=== PATIENT | female | born 1965 | race Caucasian/White ===

== ENCOUNTER 2017-08-10 05:19 | Inpatient (IN) | payer OTHER ==
[~2017-08-10] VITALS: Ht 177.8 cm; Wt 82.7 kg
[~2017-08-10 05:19] MED LIST: B12; DULO60CA7 PO; ESTROGEN PO; LEVO75TA PO; MVT TP; OMEP-110 PO; TRAM50TA2 PO; ZOLP-413 PO
[2017-08-10] MEDS ORDERED: LACTATED RINGERS 1,000 ML IV SCH (06:08)
[2017-08-10] MEDS ORDERED: BUPIVACAINE/PF 0.5% ONE (06:16)
[2017-08-10] MEDS ORDERED: EPINEPHRINE 1 MG/ML, 1ML ONE (06:17)
[2017-08-10] MEDS ORDERED: THROMBIN 5,000 UNIT VIAL TP ONE (06:17)
[2017-08-10] MEDS ORDERED: BACITRACIN 50,000 UNIT ONE (06:17)
[2017-08-10] MEDS ORDERED: BACITRACIN OINT 500U/GM, 15 GM ONE (06:17)
[2017-08-10] MEDS ORDERED: ESTR1TAB15 PO (06:35)
[2017-08-10] MEDS ORDERED: ALPR0.5T6 PO (06:35)
[2017-08-10 06:36] VITALS: BP 127/85
[2017-08-10] MEDS ORDERED: DEXAMETHASONE 4 MG/ML, 5ML ONE (07:14)
[2017-08-10] MEDS ORDERED: REMIFENTANIL 2 MG ONE (07:14)
[2017-08-10] MEDS ORDERED: ONDANSETRON 2MG/ML, 2ML ONE ×2 (07:14→09:26)
[2017-08-10] MEDS ORDERED: EPHEDRINE 50 MG/ML, 1ML ONE (07:14)
[2017-08-10] MEDS ORDERED: PROPOFOL 10 MG/ML, 20ML ONE (07:14)
[2017-08-10] MEDS ORDERED: CEFAZOLIN 1,000 MG ONE (07:14)
[2017-08-10] MEDS ORDERED: MIDAZOLAM 1 MG/ML, 2ML ONE ×2 (07:15→09:53)
[2017-08-10] MEDS ORDERED: FENTANYL PF 100 MCG/2ML ONE ×2 (07:16→09:06)
[2017-08-10] MEDS ORDERED: ONDANSETRON 2MG/ML, 2ML IVPush PRN ×2 (08:30→09:00)
[2017-08-10] MEDS ORDERED: LABETALOL 5MG/ML, 20ML IV PRN (08:30)
[2017-08-10] MEDS ORDERED: EPHEDRINE 50 MG/ML, 1ML IVPush PRN (08:30)
[2017-08-10] MEDS ORDERED: MEPERIDINE/PF 25MG/0.5ML IVPush PRN (08:30)
[2017-08-10] MEDS ORDERED: METOCLOPRAMIDE 5 MG/ML, 2ML IV PRN (08:30)
[2017-08-10] MEDS ORDERED: hydrALAzine 20 MG/ML, 1ML IV PRN (08:30)
[2017-08-10] MEDS ORDERED: MIDAZOLAM 1 MG/ML, 2ML IV PRN (08:30)
[2017-08-10] MEDS ORDERED: ALBUTEROL SULFATE 2.5 MG/3 ML NPPB PRN (08:30)
[2017-08-10] MEDS ORDERED: OXYcodone 5 MG/5 ML ORAL.SOL UDC PO PRN (08:30)
[2017-08-10] MEDS ORDERED: PHARMACY MAY ADJ FOR RENAL FX MC PRN (09:00)
[2017-08-10] MEDS ORDERED: HYDROcodone/APAP 10/325 MG TABLET PO PRN (09:00)
[2017-08-10] MEDS ORDERED: PROMETHAZINE 25 MG/ML, 1ML IM PRN (09:00)
[2017-08-10] MEDS ORDERED: morphine SULFATE 10 MG/ML, 1ML IVPush PRN (09:00)
[2017-08-10] MEDS: DULOXETINE 30 MG CAPSULE.DR PO SCH (09:00)
[2017-08-10] MEDS: SODIUM CHLORIDE FLUSH 10ML SYR IVF SCH ×2 (09:00→19:43)
[2017-08-10] MEDS ORDERED: HYDROcodone/APAP 5/325 TABLET PO PRN (09:00)
[2017-08-10] MEDS ORDERED: SENNA/DOCUSATE TABLET PO PRN (09:00)
[2017-08-10] MEDS ORDERED: DIPHENHYDRAMINE 50 MG/ML, 1ML IVPush PRN (09:00)
[2017-08-10] MEDS ORDERED: BISACODYL 10 MG SUPP PR PRN (09:00)
[2017-08-10] MEDS ORDERED: OXYcodone 5 MG/5 ML ORAL.SOL UDC ONE (09:06)
[2017-08-10] MEDS: FENTANYL PF 100 MCG/2ML IV PRN ×2 (09:08→09:20)
[2017-08-10] MEDS ORDERED: METHOCARBAMOL 750 MG TABLET ONE (09:25)
[2017-08-10] MEDS ORDERED: HYDROmorphone 2 MG/ML, 1ML ONE (09:30)
[2017-08-10] MEDS: HYDROmorphone 1 MG/ML, 1ML IV PRN ×4 (09:32→10:03)
[2017-08-10] MEDS: METHOCARBAMOL 750 MG TABLET PO PRN ×2 (09:40→17:47)
[2017-08-10] MEDS ORDERED: LABETALOL 5MG/ML, 20ML ONE (09:55)
[2017-08-10 11:00] VITALS: BP 149/90
[2017-08-10] MEDS: TRAMADOL MC SCH ×2 (12:00→19:33)
[2017-08-10] MEDS: D5%-0.9% NACL+KCL 20MEQ 1,000 ML IV SCH (12:31)
[2017-08-10] MEDS: OMEPRAZOLE 20 MG CAPSULE.DR PO SCH (12:31)
[2017-08-10] MEDS: ESTRADIOL 1 MG TABLET PO SCH (12:31)
[2017-08-10 13:29] VITALS: BP 136/83
[2017-08-10] MEDS: OXYcodone/APAP 5/325MG TABLET PO PRN ×3 (13:55→21:53)
[2017-08-10] MEDS: CEFAZOLIN PMX 1GM/50ML 50 ML IVPB SCH ×2 (16:06→23:13)
[2017-08-10 18:22] VITALS: BP 137/79
[2017-08-10 23:09] VITALS: BP 117/74
[2017-08-11] MEDS: D5%-0.9% NACL+KCL 20MEQ 1,000 ML IV SCH (00:48)
[2017-08-11] MEDS: TRAMADOL MC SCH (00:56)
[2017-08-11] MEDS: METHOCARBAMOL 750 MG TABLET PO PRN ×2 (01:59→10:49)
[2017-08-11] MEDS: OXYcodone/APAP 5/325MG TABLET PO PRN ×3 (02:00→10:49)
[2017-08-11 02:16] VITALS: BP 115/76
[2017-08-11] MEDS ORDERED: LEVOTHYROXINE 75 MCG TABLET PO SCH (06:00)
[2017-08-11 06:30] VITALS: BP 110/69
[2017-08-11] MEDS ORDERED: OMEPRAZOLE 20 MG CAPSULE.DR PO SCH (07:30)
[2017-08-11 07:35] VITALS: BP 110/69
[2017-08-11] MEDS: DULOXETINE 30 MG CAPSULE.DR PO SCH (07:51)
[2017-08-11] MEDS: SODIUM CHLORIDE FLUSH 10ML SYR IVF SCH (07:51)
[2017-08-11] MEDS: OMEPRAZOLE 20 MG CAPSULE.DR PO SCH (07:51)
[2017-08-11] MEDS: ESTRADIOL 1 MG TABLET PO SCH (07:51)
[2017-08-11] MEDS ORDERED: ZOLPIDEM 5MG TABLET PO PRN (10:30)
[2017-08-11] MEDS ORDERED: OXYC-302 PO (11:06)
[2017-08-11] MEDS ORDERED: METH750T87 PO (11:06)
[2017-08-11] MEDS ORDERED: CEPH-368 PO (11:07)
[2017-08-11] MEDS ORDERED: FLUC150T PO (11:12)
== END 2017-08-11 11:30 | disposition home or self-care (01) | DRG 473 ==
LOC: ORIP 05:19 → 4NOR 11:16 → DCLOUNGE 08-11 11:05
PROVIDERS: ADMIT Neurological Surgery; ATTEND Neurological Surgery
PROC: 0RB30ZZ Excision of Cervical Vertebral Disc, Open Approach (ICD-10-PCS; 2017-08-10)
PROC: 4A11X4G Monitoring of Peripheral Nervous Electrical Activity, Intraoperative, External Approach (ICD-10-PCS; 2017-08-10)
PROC: 0RG20A0 Fusion of 2 or more Cervical Vertebral Joints with Interbody Fusion Device, Anterior Approach, Anterior Column, Open Approach (ICD-10-PCS; principal; 2017-08-10 07:00)
DX: M48.02 Spinal stenosis, cervical region (principal); M25.78 Osteophyte, vertebrae; M40.292 Other kyphosis, cervical region; M50.122 Cervical disc disorder at C5-C6 level with radiculopathy; Z87.891 Personal history of nicotine dependence; Z88.6 Allergy status to analgesic agent; Z88.8 Allergy status to other drugs, medicaments and biological substances
CPT/HCPCS: 72040; C1713; J0171; J0690; J1100; J1170; J2250; J2405; J2704; J3010; J3490; C1762; C1778; J3480; J7120